=== PATIENT | male | born 1940 | race Caucasian/White ===

== ENCOUNTER 2018-09-13 09:36 | Observation (INO) | payer MEDICARE, OTHER ==
[~2018-09-13] VITALS: Ht 172.7 cm; Wt 77.0 kg
[~2018-09-13 09:36] MED LIST: ANAS1TAB10 PO; ASPI-1071 PO; CARV6.253 PO; FLUO60SO3 EACH EAR; LISI10TA4 PO; OMEP20TA23 PO
[2018-09-13 10:02] LABS: BASOPHILS % (AUTO) 0.4 % (0-1); EOSINOPHILS # (AUTO) 0.2 X10'3 (0-0.9); EOSINOPHILS % (AUTO) 3.5 % (0-6); HEMATOCRIT 47.9 % (42.0-52.0); LYMPHOCYTES # (AUTO) 0.9 X10'3 (1.1-4.8); LYMPHOCYTES % (AUTO) 20.3 % (21-51); MEAN CORPUSCULAR HEMOGLOBIN 31.7 PG (27.0-31.0); MEAN CORPUSCULAR HGB CONC 33.3 % (33.0-36.5); MEAN CORPUSCULAR VOLUME 95.1 FL (78-98); MEAN PLATELET VOLUME 7.1 FL (7.4-10.4); MONOCYTES # (AUTO) 0.4 X10'3 (0-0.9); MONOCYTES % (AUTO) 7.8 % (2-12); NEUTROPHILS # (AUTO) 3.1 X10'3 (1.8-7.7); PLATELET COUNT 249 X10'3 (140-440); RED BLOOD COUNT 5.04 X10'6 (4.70-6.10); RED CELL DISTRIBUTION WIDTH 14.1 % (11.5-14.5); WHITE BLOOD COUNT 4.6 X10'3 (4.5-11.0)
[2018-09-13 10:15] LABS: PARTIAL THROMBOPLASTIN TIME 26 SECONDS (22-32); PROTHROMBIN TIME 10.4 SECONDS (9.0-12.0)
[2018-09-13 10:16] LABS: ALANINE AMINOTRANSFERASE 34 U/L (12-78); ALBUMIN/GLOBULIN RATIO 1.1 (1.1-1.5); ALKALINE PHOSPHATASE 74 IU/L (46-116); ANION GAP 9 (8-16); ASPARTATE AMINO TRANSFERASE 27 U/L (10-37); BILIRUBIN,TOTAL 0.7 MG/DL (0.1-1.0); BLOOD UREA NITROGEN 17 MG/DL (7-18); BUN/CREATININE RATIO 21.3 (5.4-32.0); CALCIUM 8.9 MG/DL (8.5-10.1); CHLORIDE 103 MMOL/L (99-107); GLUCOSE 150 MG/DL (70-104); POTASSIUM 3.3 MMOL/L (3.5-5.1); SODIUM 142 MMOL/L (135-145); TOTAL CARBON DIOXIDE 30.5 MMOL/L (24-32); TOTAL PROTEIN 7.7 G/DL (6.4-8.2); eGFR > 90 ML/MIN
[2018-09-13] MEDS ORDERED: meclizine 12.5mg tablet PO ONE (11:40)
[2018-09-13] MEDS ORDERED: MECL-111 PO (12:05)
[2018-09-13] MEDS: labetalol 20mg/4ml (5mg/ml) syringe IV PRN ×5 (12:26→15:23)
[2018-09-13] MEDS ORDERED: CELE-193 PO (14:14)
[2018-09-13] MEDS ORDERED: TRAM50TA2 PO (14:14)
[2018-09-13] MEDS ORDERED: FINA1TAB17 (14:14)
[2018-09-13] MEDS ORDERED: minoxidil 2.5mg tablet PO ONE (14:15)
[2018-09-13] MEDS ORDERED: iohexol 350MG/ML 100ml bottle IV ONE (14:25)
[2018-09-13] MEDS ORDERED: labetalol 20mg/4ml (5mg/ml) syringe IV PRN (16:10)
[2018-09-13] MEDS: diltiazem 30mg tablet PO SCH (17:06)
[2018-09-13] MEDS ORDERED: lisinopril 10 MG tablet PO STA (17:45)
[2018-09-13] MEDS: lisinopril 10 MG tablet PO SCH (17:50)
[2018-09-13 18:45] VITALS: BP 214/120
[2018-09-13 20:00] VITALS: BP_SYST 114; BP_SYST 179; BP_SYST 188; BP_DIAS 75; BP_DIAS 85; BP_DIAS 94
[2018-09-13] MEDS ORDERED: meclizine 12.5mg tablet PO PRN (20:55)
[2018-09-13] MEDS ORDERED: traMADol 50MG tablet PO PRN (21:00)
[2018-09-13] MEDS ORDERED: famotidine 20mg tablet PO SCH (21:00)
[2018-09-13 23:00] VITALS: BP 114/75
[2018-09-14] MEDS: diltiazem 30mg tablet PO SCH ×3 (02:32→14:00)
[2018-09-14 03:00] VITALS: BP 147/69
[2018-09-14 06:57] LABS: BASOPHILS % (AUTO) 0.2 % (0-1); EOSINOPHILS % (AUTO) 0 % (0-6); HEMATOCRIT 43.4 % (42.0-52.0); HEMOGLOBIN 14.4 g/dl (14.0-17.9); LYMPHOCYTES # (AUTO) 0.7 X10'3 (1.1-4.8); LYMPHOCYTES % (AUTO) 9.4 % (21-51); MEAN CORPUSCULAR HEMOGLOBIN 31.5 PG (27.0-31.0); MEAN CORPUSCULAR HGB CONC 33.2 % (33.0-36.5); MEAN CORPUSCULAR VOLUME 94.8 FL (78-98); MEAN PLATELET VOLUME 7.5 FL (7.4-10.4); MONOCYTES # (AUTO) 0.8 X10'3 (0-0.9); MONOCYTES % (AUTO) 10.2 % (2-12); NEUTROPHILS # (AUTO) 5.9 X10'3 (1.8-7.7); NEUTROPHILS % (AUTO) 80.2 % (42-75); PLATELET COUNT 242 X10'3 (140-440); RED BLOOD COUNT 4.57 X10'6 (4.70-6.10); RED CELL DISTRIBUTION WIDTH 14.1 % (11.5-14.5); WHITE BLOOD COUNT 7.4 X10'3 (4.5-11.0)
[2018-09-14 07:00] VITALS: BP 128/62
[2018-09-14 07:06] LABS: ALBUMIN 3.5 G/DL (3.4-5.0); ANION GAP 10 (8-16); BLOOD UREA NITROGEN 23 MG/DL (7-18); BUN/CREATININE RATIO 19.2 (5.4-32.0); CALCIUM 9.1 MG/DL (8.5-10.1); CHLORIDE 102 MMOL/L (99-107); GLUCOSE 128 MG/DL (70-104); POTASSIUM 3.6 MMOL/L (3.5-5.1); SODIUM 139 MMOL/L (135-145); TOTAL CARBON DIOXIDE 27.3 MMOL/L (24-32); eGFR 59 ML/MIN
[2018-09-14 08:00] VITALS: BP_SYST 114; BP_SYST 120; BP_SYST 128; BP_DIAS 61; BP_DIAS 62; BP_DIAS 66
[2018-09-14] MEDS ORDERED: finasteride 5mg tablet PO SCH (08:00)
[2018-09-14] MEDS: lisinopril 10 MG tablet PO SCH (09:03)
[2018-09-14 11:00] VITALS: BP 118/60
[2018-09-14] MEDS ORDERED: METO-395 PO (11:30)
[2018-09-14] MEDS ORDERED: LISI10TA4 PO (11:30)
== END 2018-09-14 14:50 | disposition home or self-care (01) ==
LOC: ER 09:37 → ED HOLD 15:57 → PCU 3S 19:26
PROVIDERS: ADMIT Internal Medicine; ATTEND Internal Medicine
DX: R42 Dizziness and giddiness (principal); I16.0 Hypertensive urgency; E87.6 Hypokalemia; N40.0 Benign prostatic hyperplasia without lower urinary tract symptoms; I11.9 Hypertensive heart disease without heart failure; H53.8 Other visual disturbances; G47.30 Sleep apnea, unspecified; M15.9 Polyosteoarthritis, unspecified; I65.23 Occlusion and stenosis of bilateral carotid arteries; G89.29 Other chronic pain; G93.89 Other specified disorders of brain; Z78.9 Other specified health status; Z96.611 Presence of right artificial shoulder joint; Z96.652 Presence of left artificial knee joint; Z96.612 Presence of left artificial shoulder joint; Z85.828 Personal history of other malignant neoplasm of skin
CPT/HCPCS: 36415; 70450; 70496; 70498; 71045; 80048; 80053; 84484; 85025; 85610; 85730; 87070; 93005; 93306; 96374; 96376; 99285; G0378; J8597; Q9967; J3490